=== PATIENT | female | born 1965 | race Two or more races ===

== ENCOUNTER 2017-06-23 14:01 | Outpatient (CLI) | payer OTHER ==
[~2017-06-23 14:01] MED LIST: CATAFLAM50 MG PO; CETIRIZINE 10 MG; DYMISTA NASAL S23 GM NS; KETO10TA2 PO; NEUROTIN; ORPH100T PO; TOPROL XL50 MG PO; ZANTAC300 MG PO
== END 2017-06-23 15:49 | disposition home or self-care (01) ==
LOC: MAMO-SONO 14:01
DX: Z12.31 Encounter for screening mammogram for malignant neoplasm of breast (principal); N60.19 Diffuse cystic mastopathy of unspecified breast; E03.8 Other specified hypothyroidism

== ENCOUNTER 2017-06-23 14:24 | Outpatient (CLI) | payer OTHER | END 2017-06-23 15:53 | disposition home or self-care (01) | LOC: RAD 14:24 | DX: J44.9 Chronic obstructive pulmonary disease, unspecified (principal) ==

== ENCOUNTER 2017-07-06 13:25 | Outpatient (CLI) | payer OTHER | END 2017-07-06 13:39 | disposition home or self-care (01) | LOC: SONOGRAMA 13:25 | DX: N63.21 Unspecified lump in the left breast, upper outer quadrant (principal) ==

== ENCOUNTER 2017-09-02 15:59 | Outpatient (CLI) | payer OTHER | END 2017-09-02 17:00 | disposition home or self-care (01) | LOC: RAD 15:59 | DX: M51.36 Other intervertebral disc degeneration, lumbar region (principal) ==

== ENCOUNTER 2017-09-25 06:45 | Day surgery (SDC) | payer OTHER ==
[~2017-09-25 06:45] MED LIST changes: +TYLENOL ARTHRI650 MG PO
== END 2017-09-25 19:25 | disposition home or self-care (01) ==
LOC: CIR.AMB 06:45
DX: D24.2 Benign neoplasm of left breast (principal)

== ENCOUNTER 2017-10-12 14:30 | Outpatient (CLI) | payer OTHER ==
[~2017-10-12] VITALS: Ht 170.2 cm; Wt 65.8 kg
== END 2017-10-12 14:45 | disposition home or self-care (01) ==
LOC: OFIC 805 14:30
DX: H61.22 Impacted cerumen, left ear (principal); J38.1 Polyp of vocal cord and larynx

== ENCOUNTER 2017-10-13 09:01 | Outpatient (CLI) | payer OTHER | END 2017-10-13 09:10 | disposition home or self-care (01) | LOC: NUCLEAR 09:01 | DX: M54.5 Low back pain (principal); M54.16 Radiculopathy, lumbar region | CPT/HCPCS: 78315; A9503 ==

== ENCOUNTER 2017-11-02 09:18 | Outpatient (CLI) | payer OTHER | END 2017-11-02 17:00 | disposition home or self-care (01) | LOC: RAD 09:18 | DX: M54.5 Low back pain (principal); M54.16 Radiculopathy, lumbar region ==

== ENCOUNTER → 2019-07-01 09:57 | Outpatient (CLI) | payer OTHER | END | disposition home or self-care (01) | LOC: NUCLEAR 09:57 | DX: I34.1 Nonrheumatic mitral (valve) prolapse (principal) ==

== ENCOUNTER → 2019-07-15 | Outpatient (CLI) | payer OTHER | END | disposition home or self-care (01) | LOC: MAMO-SONO 11:15 | DX: N60.12 Diffuse cystic mastopathy of left breast (principal); N60.11 Diffuse cystic mastopathy of right breast; Z12.31 Encounter for screening mammogram for malignant neoplasm of breast ==

== ENCOUNTER → 2020-01-19 | Outpatient (CLI) | payer OTHER ==
[~2020-01-19] VITALS: Ht 170.2 cm; Wt 65.8 kg
== END | disposition home or self-care (01) ==
LOC: OFIC 805 13:00
PROVIDERS: ATTEND Otolaryngology
DX: R49.0 Dysphonia (principal); H61.23 Impacted cerumen, bilateral; J30.89 Other allergic rhinitis; K21.9 Gastro-esophageal reflux disease without esophagitis

== ENCOUNTER 2020-01-25 08:05 | Outpatient (CLI) | payer OTHER | END 2020-01-25 08:10 | disposition home or self-care (01) | LOC: LAB 08:05 | PROVIDERS: ATTEND Physical Medicine & Rehabilitation | DX: M35.8 Other specified systemic involvement of connective tissue (principal); E06.3 Autoimmune thyroiditis; E78.2 Mixed hyperlipidemia; E55.9 Vitamin D deficiency, unspecified; Z12.11 Encounter for screening for malignant neoplasm of colon ==

== ENCOUNTER 2020-01-25 09:14 | Outpatient (CLI) | payer OTHER | END 2020-01-25 14:26 | disposition home or self-care (01) | LOC: NUCLEAR 09:14 | PROVIDERS: ATTEND Physical Medicine & Rehabilitation | DX: M13.0 Polyarthritis, unspecified (principal); M85.89 Other specified disorders of bone density and structure, multiple sites | CPT/HCPCS: 77080; 78306; A9503 ==

== ENCOUNTER 2020-01-25 10:07 | Outpatient (CLI) | payer OTHER | END 2020-01-25 11:14 | disposition home or self-care (01) | LOC: SONOGRAMA 10:07 | PROVIDERS: ATTEND Internal Medicine Endocrinology, Diabetes & Metabolism | DX: E04.2 Nontoxic multinodular goiter (principal) ==

== ENCOUNTER 2020-03-15 10:59 | Outpatient (CLI) | payer OTHER | END 2020-03-15 11:04 | disposition home or self-care (01) | LOC: LAB 10:59 | PROVIDERS: ATTEND Otolaryngology | DX: J30.89 Other allergic rhinitis (principal); Z03.818 Encounter for observation for suspected exposure to other biological agents ruled out ==

== ENCOUNTER 2020-03-15 16:29 | Outpatient (CLI) | payer OTHER | END 2020-03-15 17:00 | disposition home or self-care (01) | LOC: OFIC 805 16:29 | PROVIDERS: ATTEND Otolaryngology | DX: K21.9 Gastro-esophageal reflux disease without esophagitis (principal); J30.89 Other allergic rhinitis; H93.8X3 Other specified disorders of ear, bilateral ==

== ENCOUNTER 2020-04-11 17:16 | Outpatient (CLI) | payer OTHER | END 2020-04-11 17:29 | disposition home or self-care (01) | LOC: LAB 17:16 | PROVIDERS: ATTEND Emergency Medicine Pediatric Emergency Medicine | DX: Z03.818 Encounter for observation for suspected exposure to other biological agents ruled out (principal) ==

== ENCOUNTER 2020-04-17 14:00 | Outpatient (CLI) | payer OTHER | END 2020-04-17 14:06 | disposition home or self-care (01) | LOC: LAB 14:00 | PROVIDERS: ATTEND General Practice | DX: Z03.818 Encounter for observation for suspected exposure to other biological agents ruled out (principal); R50.9 Fever, unspecified; R06.02 Shortness of breath; R05 Cough ==

== ENCOUNTER 2020-12-25 15:54 | Emergency (ER) | payer BC, OTHER ==
[~2020-12-25] VITALS: Ht 167.6 cm; Wt 68.9 kg
[2020-12-25] MEDS ORDERED: CHILDREN'S ASPI81 MG PO (16:03)
[2020-12-25] MEDS ORDERED: NORFLEX100MG PO (18:33)
[2020-12-25] MEDS ORDERED: MUPIROCIN22 GM TOP (18:33)
[2020-12-25] MEDS ORDERED: KETO10TA2 PO (18:33)
== END 2020-12-25 20:46 | disposition home or self-care (01) ==
LOC: ER 15:54
DX: S80.12XA Contusion of left lower leg, initial encounter (principal); S80.11XA Contusion of right lower leg, initial encounter; S80.02XA Contusion of left knee, initial encounter; S80.01XA Contusion of right knee, initial encounter; S90.02XA Contusion of left ankle, initial encounter; S90.01XA Contusion of right ankle, initial encounter; M54.89 Other dorsalgia; V03.19XA Pedestrian with other conveyance injured in collision with car, pick-up truck or van in traffic accident, initial encounter; Y93.89 Activity, other specified; Y92.413 State road as the place of occurrence of the external cause; Y99.8 Other external cause status

== ENCOUNTER → 2020-12-26 13:18 | Outpatient (CLI) | payer BC, OTHER ==
[~2020-12-26 13:18] MED LIST changes: +CHILDREN'S ASPI81 MG PO; +MUPIROCIN22 GM TOP; +NORFLEX100MG PO
== END | disposition home or self-care (01) ==
LOC: NUCLEAR 13:18
PROVIDERS: ATTEND Internal Medicine Cardiovascular Disease
DX: I87.2 Venous insufficiency (chronic) (peripheral) (principal)

== ENCOUNTER 2021-05-15 12:17 | Outpatient (CLI) | payer OTHER | END 2021-05-15 12:36 | disposition home or self-care (01) | LOC: MAMO-SONO 12:17 | PROVIDERS: ATTEND Obstetrics & Gynecology | DX: N60.11 Diffuse cystic mastopathy of right breast (principal); N60.12 Diffuse cystic mastopathy of left breast; Z12.31 Encounter for screening mammogram for malignant neoplasm of breast ==

== ENCOUNTER 2021-05-28 16:32 | Outpatient (CLI) | payer OTHER | END 2021-05-28 16:45 | disposition home or self-care (01) | LOC: SONOGRAMA 16:32 | PROVIDERS: ATTEND Obstetrics & Gynecology | DX: N60.11 Diffuse cystic mastopathy of right breast (principal); N60.12 Diffuse cystic mastopathy of left breast; Z12.31 Encounter for screening mammogram for malignant neoplasm of breast ==

== ENCOUNTER 2021-06-03 11:57 | Outpatient (CLI) | payer OTHER | END 2021-06-03 23:00 | disposition home or self-care (01) | LOC: LAB 11:57 | PROVIDERS: ATTEND Internal Medicine Cardiovascular Disease | DX: Z20.822 Contact with and (suspected) exposure to COVID-19 (principal) ==

== ENCOUNTER 2021-06-17 10:54 | Outpatient (CLI) | payer OTHER | END 2021-06-17 10:59 | disposition home or self-care (01) | LOC: NUCLEAR 10:54 | PROVIDERS: ATTEND Internal Medicine Cardiovascular Disease | DX: I05.8 Other rheumatic mitral valve diseases (principal); R00.2 Palpitations ==

== ENCOUNTER 2021-06-26 08:00 | Outpatient (CLI) | payer OTHER | END 2021-06-26 08:30 | disposition home or self-care (01) | LOC: PPH VACUNA 08:00 | PROVIDERS: ATTEND Emergency Medicine Pediatric Emergency Medicine | DX: Z23 Encounter for immunization (principal) ==

== ENCOUNTER 2021-09-02 15:29 | Outpatient (CLI) | payer OTHER | END 2021-09-02 15:33 | disposition home or self-care (01) | LOC: MAMO-SONO 15:29 | PROVIDERS: ATTEND Obstetrics & Gynecology | DX: Z12.31 Encounter for screening mammogram for malignant neoplasm of breast (principal); N60.11 Diffuse cystic mastopathy of right breast; N60.12 Diffuse cystic mastopathy of left breast ==

== ENCOUNTER 2022-05-25 09:47 | Emergency (ER) | payer BC ==
[~2022-05-25] VITALS: Ht 167.6 cm; Wt 69.4 kg
[2022-05-25] MEDS ORDERED: OFLOXACIN5 M1 OPHT (12:10)
[2022-05-25] MEDS ORDERED: ZYRTEC10 M3 PO (12:12)
[2022-05-25] MEDS ORDERED: FLONASE ALLERG9.9 ML NASAL (12:13)
== END 2022-05-25 12:33 | disposition home or self-care (01) ==
LOC: ER 09:47
DX: S05.02XA Injury of conjunctiva and corneal abrasion without foreign body, left eye, initial encounter (principal); W50.4XXA Accidental scratch by another person, initial encounter; Y93.9 Activity, unspecified; Y92.9 Unspecified place or not applicable; Y99.9 Unspecified external cause status

== ENCOUNTER 2022-07-01 15:08 | Outpatient (CLI) | payer OTHER ==
[~2022-07-01 15:08] MED LIST changes: +FLONASE ALLERG9.9 ML NASAL; +OFLOXACIN5 M1 OPHT; +ZYRTEC10 M3 PO
== END 2022-07-01 15:29 | disposition home or self-care (01) ==
LOC: MAMO-SONO 15:08
PROVIDERS: ATTEND Obstetrics & Gynecology
DX: Z12.31 Encounter for screening mammogram for malignant neoplasm of breast (principal); N60.11 Diffuse cystic mastopathy of right breast; N60.12 Diffuse cystic mastopathy of left breast

== ENCOUNTER 2022-09-29 14:25 | Outpatient (CLI) | payer OTHER | END 2022-09-29 14:41 | disposition home or self-care (01) | LOC: SONOGRAMA 14:25 | PROVIDERS: ATTEND Internal Medicine Cardiovascular Disease | DX: E03.9 Hypothyroidism, unspecified (principal); M46.48 Discitis, unspecified, sacral and sacrococcygeal region; R13.10 Dysphagia, unspecified; J02.9 Acute pharyngitis, unspecified ==

== ENCOUNTER 2023-09-21 15:40 | Outpatient (CLI) | payer OTHER | END 2023-09-21 15:54 | disposition home or self-care (01) | LOC: TOM 15:40 | PROVIDERS: ATTEND Internal Medicine Cardiovascular Disease | DX: E03.9 Hypothyroidism, unspecified (principal); R59.0 Localized enlarged lymph nodes ==

== ENCOUNTER → 2024-01-19 13:09 | Outpatient (CLI) | payer OTHER | END | disposition home or self-care (01) | LOC: NUCLEAR 13:00 | PROVIDERS: ATTEND Obstetrics & Gynecology | DX: M81.0 Age-related osteoporosis without current pathological fracture (principal) ==

== ENCOUNTER 2024-03-09 17:57 | Emergency (ER) | payer OTHER ==
[~2024-03-09] VITALS: Ht 167.6 cm; Wt 65.8 kg
[2024-03-09 18:05] VITALS: BP 135/81; O2SAT 98
== END 2024-03-09 21:09 | disposition home or self-care (01) ==
LOC: ER 17:59
DX: R07.89 Other chest pain (principal); Z88.8 Allergy status to other drugs, medicaments and biological substances; Z91.013 Allergy to seafood

== ENCOUNTER 2024-08-12 14:48 | Outpatient (CLI) | payer OTHER | END 2024-08-12 14:59 | disposition home or self-care (01) | LOC: RAD 14:48 | PROVIDERS: ATTEND Physical Medicine & Rehabilitation | DX: R20.0 Anesthesia of skin (principal); M79.643 Pain in unspecified hand; M65.331 Trigger finger, right middle finger ==

== ENCOUNTER 2024-11-09 22:32 | Inpatient (IN) | payer OTHER ==
[~2024-11-09] VITALS: Ht 167.6 cm; Wt 66.2 kg
[2024-11-09] MEDS ORDERED: AMIODARONE HCL 50 MG/ML AMPUL IV ONE (23:00)
[2024-11-09 23:16] LABS: BASO % 0.6 % (0.1-1.2); EOS # 0.32 (0.04-0.54); EOS % 3.2 % (0.7-7.0); LYMPH # 2.94 (1.18-3.74); LYMPH % 29.6 % (19.3-53.1); MONO # 0.83 (0.24-0.82); MONO % 8.4 % (4.7-12.5); NEUT # 5.76 (1.56-6.13); NEUT % 57.9 % (34.0-71.1); PLATELET COUNT 328 K/uL (163-369); RED BLOOD COUNT 4.52 M/uL (3.93-5.22); RED CELL DISTRIBUTION WIDTH 11.8 % (11.6-14.4)
[2024-11-09] MEDS ORDERED: 0.9 % SODIUM CHLORIDE 1,000 ML IV SCH (23:30)
[2024-11-09 23:31] LABS: INR 1.04; PARTIAL THROMBOPLASTIN TIME 25.4 SECONDS (22.0-34.0); PROTHROMBIN TIME 11.3 SECONDS (9.0-11.5)
[2024-11-09] MEDS ORDERED: ENOXAPARIN SODIUM 60 MG/0.6 ML SYRINGE SUBCUTANEO SCH (23:35)
[2024-11-09 23:36] LABS: ALBUMIN 3.8 gm/dL (3.4-5.0); BILIRUBIN TOTAL 0.58 mg/dL (0.3-1.2); CALCIUM 9.3 mg/dL (8.5-10.1); CREATININE SERUM 1.03 mg/dL (0.55-1.02); GFR 54.85; GLOBULINA 3.5 G/DL (2.4-3.5); POTASSIUM 3.78 mEq/L (3.5-5.1); TOTAL PROTEIN 7.3 gm/dL (6.4-8.2)
[2024-11-09] MEDS ORDERED: ACETAMINOPHEN 500 MG GEL..CAP PO PRN (23:45)
[2024-11-10 01:10] VITALS: BP 96/58
[2024-11-10] MEDS ORDERED: ENOXAPARIN SODIUM 60 MG/0.6 ML SYRINGE SUBCUTANEO ONE (02:04)
[2024-11-10 04:47] LABS: COVID-19 AG NEGATIVE (NEGATIVE)
[2024-11-10 04:48] LABS: INFLUENZA A AG NEGATIVE (NEGATIVE); INFLUENZA B AG NEGATIVE (NEGATIVE)
[2024-11-10 06:21] LABS: URINE APPEARANCE Clear; URINE BILIRRUBIN Negative (NEGATIVE); URINE BLOOD Trace; URINE COLOR Yellow; URINE GLUCOSE Negative (NEGATIVE); URINE KETONE Negative (NEGATIVE); URINE LEUKOCYTE Small; URINE NITRATE Negative; URINE PROTEIN Negative (NEGATIVE); URINE UROBILINOGEN 0.2 E.U./dl
[2024-11-10 06:25] LABS: URINE BACTERIA 41.6 uL (0.0-1933); URINE EPITHELIAL CELLS 9.6 uL (0.0-38.8); URINE RBC 14.8 uL (0.0-20.8); URINE WBC 31.6 uL (0.0-23.2)
[2024-11-10] MEDS ORDERED: AMIODARONE HCL 900 MG in DEXTROSE 5 % IN WATER 500 ML IV SCH (06:30)
[2024-11-10] MEDS ORDERED: ATORVASTATIN CALCIUM 40 MG TABLET PO SCH (09:00)
[2024-11-10] MEDS ORDERED: FAMOTIDINE/PF 20 MG in 0.9 % SODIUM CHLORIDE 8 ML IV PUSH SCH (09:00)
[2024-11-10] MEDS ORDERED: METOPROLOL TARTRATE 50 MG TABLET PO SCH (09:23)
[2024-11-10] MEDS ORDERED: RIVAROXABAN 10 MG TAB PO SCH (09:29)
[2024-11-10] MEDS ORDERED: SODIUM CHLORIDE 0.45 % 1,000 ML IV SCH (09:30)
[2024-11-10 12:30] VITALS: BP 87/58; O2SAT 97
[2024-11-10 17:35] VITALS: BP 94/64; O2SAT 96
[2024-11-10] MEDS ORDERED: PANTOPRAZOLE SODIUM 40 MG TABLET.DR PO SCH (21:00)
[2024-11-10] MEDS ORDERED: CLONAZEPAM 1 MG TABLET PO ONE (21:00)
[2024-11-10 21:15] VITALS: O2SAT 95
[2024-11-11 00:37] VITALS: O2SAT 100
[2024-11-11 00:40] VITALS: BP 103/67; O2SAT 98
[2024-11-11 03:31] VITALS: O2SAT 98
[2024-11-11 07:00] VITALS: BP 116/63; O2SAT 100
[2024-11-11] MEDS ORDERED: CHILDREN'S ASPI81 MG PO (08:08)
[2024-11-11] MEDS ORDERED: TOPROL XL25 M1 PO (08:08)
[2024-11-11] MEDS ORDERED: PANTOPRAZOLE SO40 MG PO (08:09)
[2024-11-11] MEDS ORDERED: RIVAROXABAN 10 MG TAB PO SCH (09:00)
[2024-11-11] MEDS ORDERED: METOPROLOL SUCCINATE 50 MG TAB.SR.24H PO SCH (09:00)
== END 2024-11-11 09:26 | disposition home or self-care (01) | DRG 310 ==
LOC: ER 22:52 → MEDI 23:37 → ICU-2 23:37 → MEDI 11-10 10:01
PROVIDERS: General Practice; ADMIT Internal Medicine; ATTEND Internal Medicine
PROC: B24BZZZ Ultrasonography of Heart with Aorta (ICD-10-PCS; 2024-11-09)
PROC: 4A12X4Z Monitoring of Cardiac Electrical Activity, External Approach (ICD-10-PCS; principal; 2024-11-10)
DX: I47.19 Other supraventricular tachycardia (principal); I48.20 Chronic atrial fibrillation, unspecified; I34.0 Nonrheumatic mitral (valve) insufficiency

== ENCOUNTER 2025-04-07 15:14 | Outpatient (CLI) | payer OTHER ==
[~2025-04-07 15:14] MED LIST changes: +PANTOPRAZOLE SO40 MG PO; +TOPROL XL25 M1 PO
== END 2025-04-07 15:26 | disposition home or self-care (01) ==
LOC: MAMO-SONO 15:14
DX: N60.11 Diffuse cystic mastopathy of right breast (principal); N60.12 Diffuse cystic mastopathy of left breast; Z12.31 Encounter for screening mammogram for malignant neoplasm of breast